=== PATIENT | male | born 1955 | race Two or more races ===

== ENCOUNTER 2017-08-31 18:43 | Emergency (ER) | payer OTHER ==
[~2017-08-31] VITALS: Ht 172.7 cm; Wt 88.9 kg
[2017-08-31 19:38] VITALS: BP 154/90
[2017-08-31] MEDS ORDERED: HYDROCODONE/APAP 10/325MG 1 EA TABLET ONE (20:29)
[2017-08-31] MEDS ORDERED: TDAP [DIPH/PERTUSSIS/TET] 0.5 ML VIAL IM ONE ×2 (20:29→20:30)
[2017-08-31] MEDS ORDERED: HYDROCODONE/APAP 10/325MG 1 EA TABLET PO ONE (20:30)
== END 2017-08-31 21:41 | disposition home or self-care (01) ==
LOC: ER 18:45
DX: S05.12XA Contusion of eyeball and orbital tissues, left eye, initial encounter (principal); E11.9 Type 2 diabetes mellitus without complications; I10 Essential (primary) hypertension; Z79.82 Long term (current) use of aspirin; Z98.890 Other specified postprocedural states; Z23 Encounter for immunization; V43.52XA Car driver injured in collision with other type car in traffic accident, initial encounter; Y93.89 Activity, other specified; Y92.89 Other specified places as the place of occurrence of the external cause; Y99.8 Other external cause status
CPT/HCPCS: 70450-TC; 72125-TC; 90715; A4606; A6402; L0172; Z7610

== ENCOUNTER 2022-08-24 18:08 | Inpatient (IN) | payer MEDICARE, OTHER ==
[~2022-08-24] VITALS: Ht 172.7 cm; Wt 85.7 kg
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
--- NOTE | 2022-08-24 19:48 | NUR ---
BLOOD SUGAR: 391, MD AWARE.
[2022-08-24] MEDS ORDERED: IV NS 0.9% 1,000 ML BAG IV ONE (20:00)
[2022-08-24] MEDS ORDERED: KETOROLAC TROMETHAMINE INJ 30 MG/ML VIAL IV ONE (20:00)
[2022-08-24] MEDS ORDERED: BLOOD SUGAR DIAGNOSTIC 1 EACH STRIP IN ONE (20:00)
[2022-08-24] MEDS ORDERED: KETOROLAC TROMETHAMINE INJ 60 MG/2 ML VIAL IM ONE (20:00)
[2022-08-24] MEDS ORDERED: KETOROLAC TROMETHAMINE 15 MG/ML VIAL ONE (20:09)
--- NOTE | 2022-08-24 20:22 | NUR ---
URINE COLLECTED SENT TO LAB
--- NOTE | 2022-08-24 20:22 | NUR ---
20G IV STARTED ON LAC. BLOOD COLLECTED SENT TO LAB
[2022-08-24] MEDS ORDERED: INSULIN REGULAR, HUMAN 100 UNIT/ML 10 ML VIAL SQ ONE (20:30)
--- NOTE | 2022-08-24 20:30 | NUR ---
Note patricia in ED - 08/24/22 at 2030 by PTOLENTINO PT TAKEN TO CT
[2022-08-24 20:31] LABS: BILIRUBIN,URINE NEGATIVE (NEGATIVE); COLOR,URINE YELLOW (YELLOW); LEUKOCYTE ESTERASE ,URINE NEGATIVE (NEGATIVE); NITRITE, URINE NEGATIVE (NEGATIVE); PROTEIN,URINE NEGATIVE (NEGATIVE); UGLUCOSE 3+ mg/dL (NEGATIVE); UROBILINOGEN,URINE 0.2 EU/dL (0.2)
[2022-08-24 20:31] LABS: BASOPHILS % (AUTO) 0.5 % (0.0-2.0); EOSINOPHILS % (AUTO) 0.3 % (0.0-6.0); HEMATOCRIT 48 % (39-51); HEMOGLOBIN 15.8 g/dL (13.5-17.5); LYMPHOCYTES # (AUTO) 1.8 K/uL (0.8-4.8); LYMPHOCYTES % (AUTO) 24.1 % (20.0-44.0); MEAN CORPUSCULAR HGB CONC 33 g/dl (31.0-36.0); MEAN CORPUSCULAR VOLUME 101 fL (80-96); MONOCYTES # (AUTO) 0.6 K/uL (0.1-1.30); NEUTROPHILS % (AUTO) 67.1 % (43.0-81.0); PLATELET COUNT (AUTO) 130 K/uL (150-450); RED BLOOD CELL COUNT(AUTO) 4.77 MIL/uL (4.5-6.0); WHITE BLOOD COUNT (AUTO) 7.4 K/uL (4.3-11.0)
[2022-08-24 20:42] LABS: ALBUMIN 3.9 g/dL (3.4-5.0); BILIRUBIN,DIRECT 0.3 mg/dL (0.0-0.2); BILIRUBIN,TOTAL 1.3 mg/dL (0.2-1.0); CALCIUM, SERUM 9.6 mg/dL (8.5-10.1); CREATININE 0.8 mg/dL (0.6-1.3); POTASSIUM 4.4 mmol/L (3.5-5.1); TOTAL PROTEIN, SERUM 7.4 g/dL (6.4-8.2)
[2022-08-24] MEDS ORDERED: INSULIN REGULAR, HUMAN 100 UNIT/ML 10 ML VIAL ONE (21:16)
[2022-08-24] MEDS ORDERED: ACETAMINOPHEN 325 MG TABLET ONE (21:23)
[2022-08-24] MEDS ORDERED: ACETAMINOPHEN 325 MG TABLET PO ONE (21:30)
[2022-08-24] MEDS ORDERED: INSULIN REGULAR, HUMAN 100 UNIT/ML 3 ML VIAL IV ONE (21:30)
--- NOTE | 2022-08-24 21:37 | NUR ---
CALLED RT FOR V[facility]
--- NOTE | 2022-08-24 21:44 | NUR ---
RT AT BEDSIDE. VBG DRAWN
[2022-08-24 21:49] LABS: SITE, VBG Other; VBG COHb 0.6 %; VBG MetHb 0.3 %; VBG O2Hb 49.3 %; VENT MODE, VBG RA
--- NOTE | 2022-08-24 21:51 | NUR ---
COVID ANTIGEN COLLECTED SENT TO LAB
[2022-08-24] MEDS ORDERED: MORPHINE SULFATE INJ 4 MG/ML DISP.SYRIN IV ONE (22:00)
[2022-08-24] MEDS ORDERED: ONDANSETRON HCL/PF 4 MG/2 ML VIAL IV ONE (22:00)
[2022-08-24] MEDS ORDERED: MORPHINE SULFATE INJ 4 MG/ML DISP.SYRIN ONE (22:06)
[2022-08-24] MEDS ORDERED: ONDANSETRON HCL/PF 4 MG/2 ML VIAL ONE (22:06)
--- NOTE | 2022-08-24 22:20 | NUR ---
MRSA SWAB COLLECTED AND SENT TO LAB.
--- NOTE | 2022-08-24 22:50 | NUR ---
RECEIVED REPORT FROM ER NURSE, CIARA GUZMAN.
--- NOTE | 2022-08-24 22:53 | NUR ---
REPORT GIVEN TO FROYLAN URBINA [facility]
--- NOTE | 2022-08-24 23:07 | NUR ---
PT TRANSFERRING TO [facility] VIA ACLS PROTOCOL. VSS. ALL BELONGINGS WITH PT
[2022-08-24 23:30] VITALS: BP 122/72
[2022-08-24] MEDS ORDERED: ONDANSETRON HCL/PF 4 MG/2 ML VIAL IVP PRN (23:30)
[2022-08-24] MEDS ORDERED: IV NS 0.9% 1,000 ML IV PRN (23:30)
[2022-08-24] MEDS ORDERED: MAGNESIUM HYDROXIDE 30 ML UDC PO PRN (23:30)
[2022-08-24] MEDS ORDERED: ACETAMINOPHEN 325 MG TABLET PO PRN (23:30)
[2022-08-24] MEDS ORDERED: DEXTROSE 50%-WATER 50 ML DISP.SYRIN IV PRN (23:30)
[2022-08-24] MEDS ORDERED: Z GUARD REMEDY 4 OZ OINT TP PRN (23:30)
--- NOTE | 2022-08-24 23:30 | NUR ---
MS RN ADMITTING NOTE PATIENT WAS TRANSPORTED TO THE UNIT ON A GURNEY FROM ER. PT IS ALERT AND ORIENTED, AO X 4. HE IS ON RA, TOLERATED WELL. NO S/S OF DISTRESS OR SOB. PT HAS IV ACCESS AT HIS L AC, #20G, SL. FLUSHED WELL WITH 10 CC OF NS. PT DENIES OF HAVING PAIN AT THIS MOMENT. IV SITE IS PATENT AND INTACT. UPON ADMISSION, VITAL SIGNS WERE TAKEN FOLLOWED: BP IS 122/72; HR IS 59; RR IS 20; TEMP. IS 98.1, O2 SAT IS 97% ON RA. ORIENTED THE PT WITH SURROUNDINGS AND INSTRUCTED HOW TO USE THE CALL LIGHT. PT VERBALIZED UNDERSTANDING. SAFETY MEASURES ARE IN PLACED: BED IN LOWEST AND LOCKED POSITION; SIDE RAILS UP X 2; CALL LIGHT AND TABLE ARE WITHIN REACH. WILL CONTINUE MONITOR THE PT AND PROVIDE THE CARE PT NEEDS.
[2022-08-24] MEDS: BLOOD SUGAR DIAGNOSTIC 1 EACH STRIP IN SCH (23:54)
--- NOTE | 2022-08-24 23:54 | NUR ---
MS RN NOTE CHECKED PT'S BLOOD SUGAR BY USING GLUCOMETER, THE READING IS 429. REPEATED THE BS TEST, THE READING IS 434. [email or web address]. ENZO FIERRO NOTIFIED. WAITING FOR ORDER. CHARGE NURSE, ARNAUD, NOTIFIED.
[2022-08-25] MEDS: INSULIN REGULAR, HUMAN 100 UNIT/ML 3 ML VIAL SQ PRN ×3 (00:03→11:59)
--- NOTE | 2022-08-25 00:10 | NUR ---
MS RN NOTE DUE TO 10 UNITS OF INSULIN ADMINISTERED TO THE PT PER SLIDING SCALE; CONTACTED Jyoti FIERRO AND NOTIFIED Tiago. Nohemi FIERRO THAT PT RECEIVED 10 UNITS OF INSULIN PER SLIDING SCALE. RECEIVED THE ORDER TO DC THE ONE TIME DOSE OF 16 UNITS OF INSULIN; AND ORDER ONE TIME DOSE OF 6 UNITS OF INSULIN. CHARGE NURSE, SUBHA LARES.
[2022-08-25] MEDS ORDERED: INSULIN REGULAR, HUMAN 100 UNIT/ML 3 ML VIAL SQ ONE ×2 (00:30→01:00)
--- NOTE | 2022-08-25 00:45 | NUR ---
MS CIARA NOTE RECEIVED MD ORDER AND ADMINISTERED THE INSULIN PER MD ORDER. SNACKS PROVIDED TO THE PT.
[2022-08-25] MEDS: HYDROCODONE/APAP 10/325MG TABLET PO PRN ×3 (01:46→10:54)
--- NOTE | 2022-08-25 01:50 | NUR ---
MS RN NOTE PATIENT STATED THAT HE WAS HAVING PAIN 8 OUT OF 10 AT HIS LEFT SIDE OF RIB AREA. PRN PO MEDICATION, NORCO [phone], ADMINISTERED PER MD ORDER.
[2022-08-25 06:04] LABS: BASOPHILS % (AUTO) 0.3 % (0.0-2.0); EOSINOPHILS % (AUTO) 0.4 % (0.0-6.0); HEMATOCRIT 43 % (39-51); HEMOGLOBIN 14.1 g/dL (13.5-17.5); LYMPHOCYTES # (AUTO) 1.9 K/uL (0.8-4.8); LYMPHOCYTES % (AUTO) 28.1 % (20.0-44.0); MEAN CORPUSCULAR HGB CONC 33 g/dl (31.0-36.0); MEAN CORPUSCULAR VOLUME 101 fL (80-96); MONOCYTES # (AUTO) 0.7 K/uL (0.1-1.30); MONOCYTES % (AUTO) 9.8 % (2.0-12.0); NEUTROPHILS # (AUTO) 4.2 K/uL (1.8-8.9); NEUTROPHILS % (AUTO) 61.4 % (43.0-81.0); PLATELET COUNT (AUTO) 125 K/uL (150-450); RED BLOOD CELL COUNT(AUTO) 4.23 MIL/uL (4.5-6.0); WHITE BLOOD COUNT (AUTO) 6.8 K/uL (4.3-11.0)
[2022-08-25 06:12] LABS: CREATININE 0.8 mg/dL (0.6-1.3); MAGNESIUM 2.2 mg/dL (1.8-2.4); PHOSPHORUS 3.9 mg/dL (2.5-4.9); POTASSIUM 4.3 mmol/L (3.5-5.1)
[2022-08-25] MEDS: BLOOD SUGAR DIAGNOSTIC 1 EACH STRIP IN SCH ×2 (06:32→11:43)
--- NOTE | 2022-08-25 06:58 | NUR ---
MS RN CLOSING NOTE PATIENT IS RESTING IN BED. HE IS ALERT AND ORIENTED, AO X 4. HE IS ON RA, TOLERATED WELL. NO S/S OF DISTRESS OR SOB. PT HAS IV ACCESS AT HIS L AC, #20G, INFUSING NS @ 75 ML/HR. IV SITE IS PATENT AND INTACT. PT DENIES OF HAVING PAIN AT THIS MOMENT. SAFETY MEASURES ARE IN PLACED: BED IN LOWEST AND LOCKED POSITION; SIDE RAILS UP X 2; CALL LIGHT AND TABLE ARE WITHIN REACH. WILL ENDORSE NEXT SHIFT NURSE FOR CONTINUING PT CARE.
[2022-08-25 07:00] VITALS: BP 127/81
[2022-08-25] MEDS ORDERED: PANTOPRAZOLE 40 MG TABLET.DR PO SCH (07:30)
--- NOTE | 2022-08-25 07:30 | NUR ---
MS RN OPENING NOTE RECEIVED PATIENT AWAKE IN BED A/O X4. ON ROOM AIR, NO S/S OF DISTRESS AND NO SOB NOTED. ABLE TO MAKE NEEDS KNOWN. IV AT RIGHT HAND NS AT 75ML/HOUR, INFUSING WELL. NO PAIN NOTED. FALL AND SAFETY PRECAUTION IN PLACE, BED LOCKED AND AT THE LOWEST POSITION, SIDE RAILS UP X2, CALL LIGHT WITHIN REACH. WILL CONTINUE TO MONITOR FOR SAMINA
[2022-08-25] MEDS ORDERED: TRAM50TA2 PO (09:49)
[2022-08-25] MEDS ORDERED: PIOG15TA8 PO (10:14)
[2022-08-25] MEDS ORDERED: OMEP20CA15 PO (10:14)
[2022-08-25] MEDS ORDERED: GABA300C PO (10:14)
[2022-08-25] MEDS ORDERED: ROSU5TAB13 PO (10:14)
[2022-08-25] MEDS ORDERED: BENA40TA8 PO (10:14)
[2022-08-25] MEDS ORDERED: METO50TA16 PO (10:14)
[2022-08-25] MEDS ORDERED: METF-441 PO (10:14)
[2022-08-25] MEDS ORDERED: MECL25TA65 PO (10:14)
--- NOTE | 2022-08-25 12:55 | NUR ---
MS SUPERVISOR SHOP NOTE PATIENT DISCHARGE IN STABLE MEDICAL CONDITION. A/O X4. V/S TAKEN, STABLE AND RECORDED. NO IV ACCESS. NAME ARM BAN REMOVED. ALL BELONGINGS CHECKED AND BELONGINGS LIST SIGNED. HEALTH TEACHING AND DISCHARGE INSTRUCTIONS GIVEN AND VERBALIZED UNDERSTANDING. INSTRUCTED PATIENT TO MAKE AN APPOINTMENT WITH HIS PRIMARY DOCTOR. DISCUSSED PRESCRIPTIONS WITH PATIENT. INSTRUCTED PATIENT IN CASE OF EMERGENCY TO CALL 911 OR GO TO THE NEAREST ER. PATIENT LEFT UNIT VIA WHEELCHAIR WITH NO SIGNS OF DISTRESS, ACCOMPANIED BY RN TO THE LOBBY. PATIENT WAS PICKED UP BY [facility]I (SISTER). CHARGE NURSE AWARE OF DISCHARGED.
== END 2022-08-25 14:23 | disposition home or self-care (01) | DRG 206 ==
LOC: ER 18:36 → MED 22:44
PROVIDERS: ADMIT Nurse Practitioner Family; ATTEND Nurse Practitioner Family
DX: S22.32XA Fracture of one rib, left side, initial encounter for closed fracture (principal); J98.11 Atelectasis; E87.1 Hypo-osmolality and hyponatremia; R17 Unspecified jaundice; Y04.8XXA Assault by other bodily force, initial encounter; Y92.89 Other specified places as the place of occurrence of the external cause; E11.65 Type 2 diabetes mellitus with hyperglycemia; I11.9 Hypertensive heart disease without heart failure; E86.0 Dehydration; D75.89 Other specified diseases of blood and blood-forming organs; T38.3X6A Underdosing of insulin and oral hypoglycemic [antidiabetic] drugs, initial encounter; Z91.138 Patient's unintentional underdosing of medication regimen for other reason; Z80.9 Family history of malignant neoplasm, unspecified; Z20.822 Contact with and (suspected) exposure to COVID-19
CPT/HCPCS: 36415; 71100-TC; 80048-TC; 80076-TC; 82803-TC; 82962-TC; 83690-TC; 83735-TC; 84100-TC; 85025-TC; 87081-TC; A4223; G0378; J1815; J1885; J2270; J2405; J7030

== ENCOUNTER 2024-06-26 20:46 | Emergency (ER) | payer MEDICARE, OTHER ==
[~2024-06-26] VITALS: Ht 172.7 cm; Wt 76.2 kg
[~2024-06-26 20:46] MED LIST: BENA40TA8 PO; GABA300C PO; MECL25TA65 PO; METF-441 PO; METO50TA16 PO; OMEP20CA15 PO; PIOG15TA8 PO; ROSU5TAB13 PO
[2024-06-26 21:14] LABS: BASOPHILS # (AUTO) 0.1 K/uL (0.0-0.2); BASOPHILS % (AUTO) 0.9 % (0.0-2.0); EOSINOPHILS # (AUTO) 0.2 K/uL (0.0-0.7); EOSINOPHILS % (AUTO) 2.6 % (0.0-6.0); HEMATOCRIT 42 % (39-51); HEMOGLOBIN 14.6 g/dL (13.5-17.5); LYMPHOCYTES # (AUTO) 2.9 K/uL (0.8-4.8); LYMPHOCYTES % (AUTO) 42.4 % (20.0-44.0); MEAN CORPUSCULAR HEMOGLOBIN 32 PG (26.0-33.0); MEAN CORPUSCULAR HGB CONC 35 g/dl (31.0-36.0); MEAN CORPUSCULAR VOLUME 92 fL (80-96); MONOCYTES # (AUTO) 0.5 K/uL (0.1-1.30); MONOCYTES % (AUTO) 7.4 % (2.0-12.0); NEUTROPHILS # (AUTO) 3.2 K/uL (1.8-8.9); NEUTROPHILS % (AUTO) 46.7 % (43.0-81.0); PLATELET COUNT (AUTO) 167 K/uL (150-450); RED BLOOD CELL COUNT(AUTO) 4.52 MIL/uL (4.5-6.0); RED CELL DISTRIBUTION WIDTH 14.1 % (11.5-15.0)
[2024-06-26 21:23] LABS: CARBON DIOXIDE 30 mmol/L (21-32); CHLORIDE 102 mmol/L (98-107); CREATININE 0.7 mg/dL (0.6-1.3); GLUCOSE 191 mg/dL (74-106); POTASSIUM 3.9 mmol/L (3.5-5.1); SODIUM SERUM 140 mmol/L (136-145); UREA NITROGEN, BLOOD 9 mg/dL (7-18)
[2024-06-26 23:09] VITALS: BP 144/76; TEMP 98.8; O2SAT 95
== END 2024-06-26 23:09 | disposition home or self-care (01) ==
LOC: ER 20:55
DX: R07.89 Other chest pain (principal); I10 Essential (primary) hypertension; E11.9 Type 2 diabetes mellitus without complications; Z79.84 Long term (current) use of oral hypoglycemic drugs; Z79.899 Other long term (current) drug therapy; Z90.49 Acquired absence of other specified parts of digestive tract
CPT/HCPCS: 36415; 71045-TC; 80048-TC; 84484-TC; 85025-TC